=== PATIENT | male | born 1935 | race Caucasian/White ===

== ENCOUNTER → 2017-03-27 | Outpatient (CLI) | payer OTHER | LOC: CIMAGING 08:28 | PROVIDERS: ATTEND Family Medicine | DX: M47.896 Other spondylosis, lumbar region (principal); M16.0 Bilateral primary osteoarthritis of hip; M46.96 Unspecified inflammatory spondylopathy, lumbar region; M46.97 Unspecified inflammatory spondylopathy, lumbosacral region | CPT/HCPCS: 72100-PO; 73521-PO ==